=== PATIENT | female | born 2000 | race Caucasian/White ===

== ENCOUNTER 2023-05-24 10:00 | Emergency (ER) | payer BC, SELFPAY ==
--- NOTE | 2023-05-24 10:27 | ED.URI ---
HPI - URI/Sore Throat General Chief Complaint: Upper Respiratory Infection Stated Complaint: FEVER/COUGH/RUNNY NOSE/SORE THROAT/CHILLS/TIRED Time Seen by Provider: 05/24/23 10:45 Source: patient, RN notes reviewed and old records reviewed Mode of arrival: ambulatory Limitations: no limitations History of Present Illness HPI Narrative: 22-year-old female presents to [facility] with complaints body aches, sore throat, cough.runny nose, and right ear pain. Patient states she had some sore throat Monday but did get better after couple days other symptoms started on Monday. Patient reports she did have a fever of 101F on Monday. Patient reports that she has been taking DayQuil, Tylenol or ibuprofen for fevers and pain.Patient reports that her right ear is sore today. MD elicited complaint: fever, cough, sore throat, rhinorrhea, nasal congestion and other ( right ear pain,) Onset (ago): day(s) (4-5) Pain scale (0-10): 3 Treatments prior to arrival: acetaminophen, ibuprofen and other (DayQuil) Related Data Home Medications Medication Instructions Recorded Confirmed bupropion HCl 150 mg 24 hr tablet, 150 mg PO DAILY 05/24/23 05/24/23 extended release dextroamphetamine-amphetamine ER 20 mg PO DAILY 05/24/23 05/24/23 20 mg 24hr capsule,extend release Allergies Allergy/AdvReac Type Severity Reaction Status Date / Time No Known Allergies Allergy Verified 05/24/23 10:29 Review of Systems Review of Systems: CONSTITUTIONAL: Reports malaise, chills, sweats, or fever. EYES: Denies visual changes, redness, or discharge. ENT: Reports rhinorrhea, congestion, sinus pain, right otalgia and sore throat. CARDIOVASCULAR: Denies chest pain, palpitations, or edema. RESPIRATORY: Reports cough.? Denies dyspnea. GASTROINTESTINAL: Denies abdominal pain, nausea, vomiting, diarrhea SKIN: Denies rash or itching. MUSCULOSKELETAL: positive for myalgia. NEUROLOGIC: Denies headache. All systems reviewed & are unremarkable except as noted in HPI and below PMFSH Past Medical History Medical History (Updated 05/24/23 @ 20:36 by Roseline Jensen NP) ADHD (attention deficit hyperactivity disorder) Anxiety and depression Surgical History Surgical History (Updated 05/24/23 @ 20:34 by Roseline Jensen NP) Hx of tonsillectomy Social History Social History (Updated 05/24/23 @ 20:34 by Roseline Jensen NP) Smoking status: Never smoker Alcohol intake: current Alcohol use details: social Substance use type: does not use Occupation/Education: student Gender identity (if verbalized by the patient): Female Comments At time of signature, agree with nursing past medical, surgical, social and family history. There is no relevant family history pertinent to the presenting complaint Exam Narrative: GENERAL: Well-appearing, well-nourished, and in no acute distress. HEAD: Normocephalic EYES: PERRLA, conjunctivae clear ENT: Nares clear, turbinates edematous and erythematous, clear discharge. Mucous membranes moist.Right TM red, Left TM pearly valencia with dull light reflex bilaterally; no tragal tenderness. Oropharynx erythematous without lesions. Tonsils not present and throat without exudate, no drooling, no hoarseness, no trismus, uvula midline. NECK: Supple. lymphadenopathy CHEST: Clear to auscultation, breath sounds equal. No wheezing, rhonchi, rales, or stridor. No respiratory distress, speaks in full sentences.cough,SAO2 100% on room air HEART: Regular rate and rhythm. No murmur heard. SKIN: Warm, dry, no rash. NEURO: Alert and oriented x3. PSYCH: Normal mood and affect Course Course Emergency Course: Patient is aware of diagnosis, understands and agrees to treatment plan.? Anticipatory guidance given.? Patient agrees to follow-up as directed and is aware of reasons to seek care at the emergency department. Portions of this record may have been created with voice recognition softwar
[2023-05-24 10:28] VITALS: BP 126/97; PULSE 96; RESP 16; TEMP 37.5; O2SAT 100
[2023-05-24 10:30] VITALS: BP 126/97; PULSE 96; RESP 16; TEMP 37.5; O2SAT 100
== END 2023-05-24 11:13 | disposition home or self-care (01) ==
PROVIDERS: Emergency Provider Registered Nurse; PCP Hospitalist
DX: J02.0 Streptococcal pharyngitis (principal); H65.01 Acute serous otitis media, right ear; Z20.822 Contact with and (suspected) exposure to COVID-19; F90.9 Attention-deficit hyperactivity disorder, unspecified type; F41.9 Anxiety disorder, unspecified; F32.A Depression, unspecified
CPT/HCPCS: 87426; 87804; 87880; 99213; C9803; G0463